=== PATIENT | female | born 1970 | race American Indian/Alaskan Native ===

== ENCOUNTER 2018-06-21 18:00 | Observation (INO) | payer OTHER, MEDICAID ==
[2018-06-21] MEDS ORDERED: COLACE PO PRN (18:22)
[2018-06-21] MEDS ORDERED: SODIUM CHLORIDE FLUSH SYRINGE 10 ML IV PRN (18:22)
[2018-06-21] MEDS ORDERED: TYLENOL PO PRN (18:22)
--- NOTE | 2018-06-21 19:24 | History and Physical Report ---
History of Present Illness Date of examination: 06/21/18 Date of admission: 06/21/18 Chief complaint: "Sent from the clinic for Uncontrolled BPs" History of present illness: 47yo G 2 P 0 1 0 0 at 31 weeks 4 days here from the clinic for evaluation for pre-eclampsia secondary to uncontrolled BPs. Her BPs were 157/105, 148/106 and > 150/100. She denies headache, visual disturbances or RUQ pain. She is a [facility] patient who initiated care at 6 weeks gestation. Her course is complicated by h/o PTD, AMA, chronic HTN, and GDM. She is on Aldomet 500mg PO TID. She was also started on Labetalol 200mg PO BID today. Per clinic note, her blood glucose is well-controlled. care co-managed with [facility]. Cerclage in place. Past History Past Medical History: hypertension, diabetes (GDM), thyroid disease (secondary hypothyroidism) - Obstetrical History Expected Date of Delivery: 08/19/18 Actual Gestation: 31 Week(s) 4 Day(s) : 2 Para: 0 Hx # Term Pregnancies: 0 Number of Pregnancies: 1 Spontaneous Abortions: 0 Induced : 0 Number of Living Children: 0 Medications and Allergies Allergies Allergy/AdvReac Type Severity Reaction Status Date / Time No Known Allergies Allergy Verified 05/26/18 21:57 Home Medications Medication Instructions Recorded Confirmed Last Taken Type Methyldopa [Aldomet] 500 mg PO TID 05/26/18 05/26/18 05/26/18 09:00 History Vit,Calc76/Iron/Folic 1 each PO DAILY 05/26/18 05/26/18 05/26/18 09:00 History [Pnv 29-1 Tablet] Active Meds: Active Medications Acetaminophen (Tylenol) 650 mg PO Q4H PRN PRN Reason: Pain MILD(1-3)/Fever >100.5/PALOMINO Docusate Sodium (Colace) 100 mg PO Q12H PRN PRN Reason: Constipation Labetalol HCl (Normodyne) 200 mg PO BID [facility] Methyldopa (Aldomet) 500 mg PO ONCE ONE Stop: 06/22/18 10:01 Multivitamins/Iron/Calcium ( Vitamin) 1 each PO QDAY [facility] Sodium Chloride (Sodium Chloride Flush Syringe 10 Ml) 10 ml IV PRN PRN PRN Reason: LINE FLUSH Review of Systems All systems: negative - Vital Signs Vital signs: Vital Signs Pulse BP 74 141/81 05/26/18 21:42 05/26/18 21:42 Temp Pulse Resp BP Pulse Ox 96 H 131/77 06/21/18 18:58 06/21/18 18:58 - Physical Exam Extremities: Positive: edema (2+ BLE) - Obstetrical FHR: auscultation normal, category 1 FHR comments: baseline 140, moderate variability, 15x15 accels, no decels Uterine Contraction Monitor Mode: Palpation Uterine Contraction Pattern: Absent Results All other labs normal. Assessment and Plan - Patient Problems (1) 31 weeks gestation of Current Visit: Yes Status: Acute (2) Chronic hypertension affecting Current Visit: Yes Status: Acute Plan to address problem: Admit to L&D for 23-hours observation STAT PIH labs ordered. 24-hr urine collection initiated BPP/Doppler/DOLORES ordered Consulted Dr Juan with [facility]; will see pt in the AM (3) Gestational diabetes mellitus (GDM) Current Visit: Yes Status: Acute Qualifiers: Gestational diabetes mellitus control: diet-controlled Trimester: third trimester Qualified Code(s): O24.410 - Gestational diabetes mellitus in , diet controlled Plan to address problem: Continue blood glucose checks 4x/d (fasting and 2-hr PP) ADA diet (4) Advanced maternal age (AMA), 40 years or greater Current Visit: Yes Status: Acute
[2018-06-21 20:43] LABS: Hematocrit 30.5 % (30.3-42.9); Hemoglobin 10.9 gm/dl (10.1-14.3); Mean Corpuscular HGB Conc 36 % (30-34); Mean Corpuscular Hemoglobin 33 pg (28-32); Mean Corpuscular Volume 92 fl (79-97); Platelet Count 178 K/mm3 (140-440); Red Blood Count 3.31 M/mm3 (3.65-5.03); Red Cell Distribution Width 13.9 % (13.2-15.2)
[2018-06-21 21:06] LABS: Uric Acid 5.1 mg/dL (3.5-7.6)
[2018-06-21] MEDS ORDERED: BRETHINE ONE (21:48)
[2018-06-21] MEDS ORDERED: PEPCID IV ONE (21:50)
[2018-06-21] MEDS ORDERED: BICITRA ONE (21:50)
[2018-06-21] MEDS ORDERED: ANCEF/STERILE WATER 2 GM/20 ML 0 GM/0 ML SYRINGE IV ONE (21:50)
[2018-06-21] MEDS ORDERED: REGLAN ONE (21:50)
[2018-06-21] MEDS: NORMODYNE PO SCH (22:46)
[2018-06-21] MEDS: ALDOMET PO SCH (22:47)
--- NOTE | 2018-06-21 23:29 | Ultrasound Report ---
FINAL REPORT PROCEDURE: US OB LIMITED TECHNIQUE: Real-time limited sonographic examination was performed for evaluation of size, position, heartbeat, fluid volume for each fetus with image documentation (1 or more fetuses). CPT 07246 HISTORY: louis COMPARISON: No prior studies are available for comparison. FINDINGS: biophysical profile: breathing movements: 2. movements: 2. posterior and tone: 2 Qualitative amniotic fluid volume: 2 Total score: 8/8. Cord Doppler SD ratio: 2.19. Resistive index: 0.54. IMPRESSION: Normal biophysical profile.
--- NOTE | 2018-06-21 23:33 | Ultrasound Report ---
FINAL REPORT PROCEDURE: US OB VELOCIMETRY UMBILCAL ART TECHNIQUE: Real-time limited sonographic examination was performed for evaluation of umbilical cord for each fetus with image documentation (1 or more fetuses). CPT 92428 HISTORY: well being COMPARISON: No prior studies are available for comparison. FINDINGS: heart rate 136 beats per minute. Cord Doppler SD ratio: 2.19. Resistive index: 0.54. IMPRESSION: Cord Doppler SD ratio is within normal limits.
[2018-06-22] MEDS ORDERED: AMBIEN PO PRN (05:37)
[2018-06-22] MEDS ORDERED: AMBIEN ONE (05:42)
[2018-06-22] MEDS: ALDOMET PO SCH ×3 (05:54→21:06)
[2018-06-22] MEDS ORDERED: CELESTONE SOLUSPAN IM SCH (07:00)
--- NOTE | 2018-06-22 07:54 | Ultrasound Report ---
ULTRASOUND BIOPHYSICAL PROFILE: History: Hypertension Technique: Transabdominal ultrasound with Doppler interrogation. 2 - breathing movements 2 - movements 2 - posture and tone 2 - Qualitative amniotic fluid volume 8 - TOTAL SCORE OF POSSIBLE 8 Heart Rate (bpm) 136
[2018-06-22] MEDS ORDERED: ALDOMET PO ONE (10:00)
--- NOTE | 2018-06-22 11:22 | Progress Note ---
Assessment and Plan - Patient Problems (1) 31 weeks gestation of Current Visit: Yes Status: Acute (2) Chronic hypertension affecting Current Visit: Yes Status: Acute Plan to address problem: Continue aldomet and labetolol. Toxemia labs were normal. Will start magnesium if BP becomes unstable or if she develops signs of superimposed pre-eclampsia. Continous monitoring. 24-hr urine in progress. Celestone for FLM dose #2 Due tonight. [facility] consult called. NICU consult. (3) Gestational diabetes mellitus (GDM) Current Visit: Yes Status: Acute Qualifiers: Gestational diabetes mellitus control: diet-controlled Trimester: third trimester Qualified Code(s): O24.410 - Gestational diabetes mellitus in , diet controlled Plan to address problem: Blood glucose has been fairly controlled. Continue FS monitoring and ADA diet. (4) Advanced maternal age (AMA), 40 years or greater Current Visit: Yes Status: Acute (5) Cervical incompetence Current Visit: Yes Status: Acute (6) Cazares cerclage present Current Visit: Yes Status: Acute (7) Hypothyroidism affecting Current Visit: Yes Status: Acute Plan to address problem: Last thyroid profile was normal. (8) Anemia Current Visit: Yes Status: Acute Qualifiers: Anemia type: iron deficiency Subjective - Subjective Date of service: 06/22/18 Principal diagnosis: SIUP at 31 weeks with elevated BP. Interval history: Patient is a 47 year old , LMP 11/02/17, EDC 08/19/18 at 31 weeks and 5 days gestation who was sent from the office last evening for elevated BP of 157/ 105. She has a history of chronic HTN, gestational diabetes, cervical incompetence with cerclage in place. She is co-managed with [facility]. She was started on aldomet a few weeks ago and labetolol was added yesterday. She denied any headache, visual changes or RUQ pain. She denies any contractions, fluid leakage or bleeding. She reported good movement. Toxemia labs were normal. tracing has been CAT 1, BPP was 8/8 last night, DOLORES was 11. Cellestone for FLM was given. This AM, she denies any complaint. Objective - Vital Signs Vital Signs: Vital Signs - 12hr 06/21/18 06/21/18 06/22/18 23:19 23:59 00:59 Temperature 98.5 F Pulse Rate 93 H 81 Respiratory 18 Rate Blood Pressure 142/85 121/69 Blood Pressure [Right] O2 Sat by Pulse Oximetry 06/22/18 06/22/18 06/22/18 02:00 02:59 03:59 Temperature Pulse Rate 86 78 80 Respiratory Rate Blood Pressure 134/81 129/74 157/87 Blood Pressure [Right] O2 Sat by Pulse Oximetry 06/22/18 06/22/18 06/22/18 04:00 04:02 04:34 Temperature Pulse Rate 77 79 Respiratory 18 Rate Blood Pressure 151/87 161/94 Blood Pressure 152/82 [Right] O2 Sat by Pulse Oximetry 06/22/18 06/22/18 06/22/18 04:40 05:04 05:37 Temperature Pulse Rate 80 75 74 Respiratory Rate Blood Pressure 127/66 142/81 121/76 Blood Pressure [Right] O2 Sat by Pulse Oximetry 06/22/18 06/22/18 06/22/18 05:54 05:56 06:04 Temperature 96.7 F L Pulse Rate 74 80 85 Respiratory 19 Rate Blood Pressure 128/81 128/81 128/79 Blood Pressure 128/81 [Right] O2 Sat by Pulse Oximetry 06/22/18 06/22/18 06/22/18 06:34 07:04 07:34 Temperature Pulse Rate 88 81 84 Respiratory Rate Blood Pressure 133/78 139/77 116/67 Blood Pressure [Right] O2 Sat by Pulse Oximetry 06/22/18 06/22/18 06/22/18 08:04 08:10 08:14 Temperature 98 F Pulse Rate 94 H 85 85 Respiratory 24 Rate Blood Pressure 140/81 130/76 Blood Pressure 130/76 [Right] O2 Sat by Pulse 98 97 Oximetry 06/22/18 06/22/18 06/22/18 08:19 08:24 08:29 Temperature Pulse Rate 88 87 89 Respiratory Rate Blood Pressure Blood Pressure [Right] O2 Sat by Pulse 97 97 97 Oximetry 06/22/18 06/22/18 06/22/18 08:34 08:39 08:44 Temperature Pulse Rate 83 88 90 Respiratory Rate Blood Pressure 139/76 Blood Pressure [Right] O2 Sat by Pulse 97 97 98 Oximetry 06/22/18 06/22/18 06/22/18 08:49 08:54 08:59 Temperature Pulse Rate 91 H 89 87 Respiratory Rate Blood Pressure Blood Pressure [Right] O2 Sat by Pulse 97 97 98 Oximetry 06/22/18 06/22/18 06/22/18 09:03 09:04 09:09 Temperature Pulse Rate 94 H 93 H 89 Respiratory Rate Blood Pressure 140/86 Blood Pressure [Right] O2 Sat by Pulse 91 93 98 Oximetry 06/22/18 09:34 Temperature Pulse Rate 94 H Respiratory Rate Blood Pressure 126/70 Blood Pressure [Right] O2 Sat by Pulse Oximetry - Exam Cardiovascular: Normal S1, Normal S2 Lungs: Clear to auscultation Vulva: both: normal FHR: category 1 Uterine Contraction Monitor Mode: External Cervical Dilatation: 0 Cervical Effacement Percentage: 0 station: -3 Uterine Contraction Pattern: Absent Deep Tendon Reflex Grade: Normal +2 - Labs Labs: Abnormal Labs 06/21/18 20:30 RBC 3.31 L MCH 33 H MCHC 36 H Laboratory Results - last 24 hr 06/21/18 06/21/18 20:30 20:30 WBC 8.7 RBC 3.31 L Hgb 10.9 Hct 30.5 MCV 92 MCH 33 H MCHC 36 H RDW 13.9 Plt Count 178 Uric Acid 5.1 AST 18 ALT 13 Lactate Dehydrogenase 136 - Results US- obstetric: report reviewed
[2018-06-22] MEDS: PRENATAL VITAMIN PO SCH (12:23)
[2018-06-22] MEDS: NORMODYNE PO SCH ×2 (12:24→21:06)
--- NOTE | 2018-06-22 14:21 | Consultation ---
History of Present Illness Consult date: 06/22/18 Requesting physician: JOSELYN HILL History of present illness: 47 y/o MARIBELL 08/19/18 now 31 4/7 weeks sent in from OBs office with elevated BP's BP's in office 157/105 and 148/106 Last BP 139/81 H/O CHTN was on Methyldopa 750 TID per patient (taking a 500 mg pill and 1/2 500 mg pill TID was to start QID) Liu PALOMINO's [place] or RUQ Pain Pos swelling in lower extremities Reports being on BP's meds prior to BP's now stable after Labetalol added 200 BID --------- Also reports GDM - controlled with diet - (failed 3 hour GTT) Also h/o inc cx with cerclage by Dr. Denny Labs AST/ALT 19/13 Plts at 178 H/h at 10.9/30.5 Spot UA not seen 24 Hour urine pending BPP 8/8 - normal and DOLORES at 11 CM EFM 130's categ I Getting steroids Abd soft gravid NT no RUQ Pain Ext 1 edema DTR 2/4 no clonus OB hist VIP X 1 2014 Prog loss 20 weeks inc cx - ?? omphalocele Med CHTN GDM ?? Thyroid dys No STD No CDD NKA Past History Past Medical History: hypertension, diabetes (GDM), thyroid disease (secondary hypothyroidism) - Obstetrical History : 2 Medications and Allergies Allergies Allergy/AdvReac Type Severity Reaction Status Date / Time No Known Allergies Allergy Verified 05/26/18 21:57 Home Medications Medication Instructions Recorded Confirmed Last Taken Type Methyldopa [Aldomet] 500 mg PO TID 05/26/18 05/26/18 05/26/18 09:00 History Vit,Calc76/Iron/Folic 1 each PO DAILY 05/26/18 05/26/18 05/26/18 09:00 History [Pnv 29-1 Tablet] Active Meds: Active Medications Acetaminophen (Tylenol) 650 mg PO Q4H PRN PRN Reason: Pain MILD(1-3)/Fever >100.5/PALOMINO Betamethasone Acet/Betameth SodPhos (Celestone Soluspan) 12 mg IM Q24H [facility] Stop: 06/23/18 07:01 Last Admin: 06/22/18 12:20 Dose: 12 mg Docusate Sodium (Colace) 100 mg PO Q12H PRN PRN Reason: Constipation Labetalol HCl (Normodyne) 200 mg PO BID [facility] Last Admin: 06/22/18 12:24 Dose: 200 mg Methyldopa (Aldomet) 500 mg PO Q8HR [facility] Multivitamins/Iron/Calcium ( Vitamin) 1 each PO QDAY [facility] Last Admin: 06/22/18 12:23 Dose: 1 each Sodium Chloride (Sodium Chloride Flush Syringe 10 Ml) 10 ml IV PRN PRN PRN Reason: LINE FLUSH Zolpidem Tartrate (Ambien) 5 mg PO QHS PRN PRN Reason: Sleep - Vital Signs Vital signs: Vital Signs Pulse BP 74 141/81 05/26/18 21:42 05/26/18 21:42 Temp Pulse Resp BP Pulse Ox 98.2 F 85 20 117/62 93 06/22/18 12:29 06/22/18 12:29 06/22/18 12:29 06/22/18 12:29 06/22/18 12:29 Results Result Diagrams: 06/21/18 20:30 Abnormal lab results 06/21/18 Range/Units 20:30 RBC 3.31 L (3.65-5.03) M/mm3 MCH 33 H (28-32) pg MCHC 36 H (30-34) % All other labs normal. Assessment and Plan 1. Garcia IUP at 31 5/7 weeks 2. CHTN with Elevated BP's R/O Superimposed Preeclampsia 3. GDM 4. AMA 5. H/O Inc Cx with Cerclage 6. H/O Thyroid dys per notes Recommendations: 1. Accuchecks fastings and 2 Hour PP's 2. Diabetic teaching if not done 3. get HgA1c, TSH and Free T4 and UA if not done and drug screen 4. US for EFW if not done 5. Awaiting 24 Hour urine prot 6. NICU consult 7. Agree with Labetalol and Methyldopa 8. IV hydralazine for BP's sys > 160 or petersen > 110 9. Delivery for S/S of severe preeclampsia or compromise 10. 2200 ADA diet
--- NOTE | 2018-06-22 17:43 | Consultation ---
History of Present Illness Consult date: 06/22/18 Reason for consult: prematurity (Severe PIH at 31 weeks gestation) History of present illness: Met with mother and discussed the following: Expected NICU course Possible need for intubation, surfactant and mechanical ventilation Possible need for umbilical lines Possible need HUS for diagnosing and monitoring for IVH depending on gestation Possible need for parenteral nutrition and importance of breast milk Mother demonstrated understanding of information provided and asked appropriate questions and I encouraged her to call the NICU with questions Documentation - information: Height 5 ft 1 in Medications and Allergies Allergies Allergy/AdvReac Type Severity Reaction Status Date / Time No Known Allergies Allergy Verified 05/26/18 21:57 Home Medications Medication Instructions Recorded Confirmed Last Taken Type Methyldopa [Aldomet] 500 mg PO TID 05/26/18 05/26/18 05/26/18 09:00 History Vit,Calc76/Iron/Folic 1 each PO DAILY 05/26/18 05/26/18 05/26/18 09:00 History [Pnv 29-1 Tablet] Active Meds: Active Medications Acetaminophen (Tylenol) 650 mg PO Q4H PRN PRN Reason: Pain MILD(1-3)/Fever >100.5/PALOMINO Betamethasone Acet/Betameth SodPhos (Celestone Soluspan) 12 mg IM Q24H [facility] Stop: 06/23/18 07:01 Last Admin: 06/22/18 12:20 Dose: 12 mg Docusate Sodium (Colace) 100 mg PO Q12H PRN PRN Reason: Constipation Labetalol HCl (Normodyne) 200 mg PO BID [facility] Last Admin: 06/22/18 12:24 Dose: 200 mg Methyldopa (Aldomet) 500 mg PO Q8HR [facility] Last Admin: 06/22/18 14:17 Dose: 500 mg Multivitamins/Iron/Calcium ( Vitamin) 1 each PO QDAY [facility] Last Admin: 06/22/18 12:23 Dose: 1 each Sodium Chloride (Sodium Chloride Flush Syringe 10 Ml) 10 ml IV PRN PRN PRN Reason: LINE FLUSH Zolpidem Tartrate (Ambien) 5 mg PO QHS PRN PRN Reason: Sleep Exam Vital Signs Pulse BP 74 141/81 05/26/18 21:42 05/26/18 21:42 Temp Pulse Resp BP Pulse Ox 98.2 F 76 20 139/81 93 06/22/18 12:29 06/22/18 14:17 06/22/18 12:29 06/22/18 14:17 06/22/18 12:29 Results - Laboratory Findings 06/21/18 20:30 Abnormal lab results 06/21/18 Range/Units 20:30 RBC 3.31 L (3.65-5.03) M/mm3 MCH 33 H (28-32) pg MCHC 36 H (30-34) % Assessment and Plan Agree with steroids NICU will attend delivery Please call NICU with questions
[2018-06-22] MEDS ORDERED: HEMORRHOIDAL 0.25/3/85.5% PR PRN (21:27)
[2018-06-22 22:29] LABS: Total Volume,Urine 2250
[2018-06-22 22:40] LABS: Amphetamine Screen,Urine PRESUMPTIVE NEGATIVE; Benzodiazepines Screen,Urine PRESUMPTIVE NEGATIVE; Cannabinoid Screen,Urine PRESUMPTIVE NEGATIVE; Cocaine Screen,Urine PRESUMPTIVE NEGATIVE; Methadone Screen,Urine PRESUMPTIVE NEGATIVE; Opiate Screen,Urine PRESUMPTIVE NEGATIVE
[2018-06-23] MEDS: ALDOMET PO SCH ×2 (05:38→14:23)
--- NOTE | 2018-06-23 08:57 | Progress Note ---
Assessment and Plan - Patient Problems (1) 31 weeks gestation of Current Visit: Yes Status: Acute (2) Chronic hypertension affecting Current Visit: Yes Status: Acute Plan to address problem: BP has becomed stable. Continue aldomet and labetolol. Toxemia labs were normal on admission. Will repeat today. 24-hr urine protein 495. Celestone for FLM completed. [facility] consult done, agreed with current management. NICU consult done. Will discharge home today if toxemia labs and BPP normal. Pt to F/U with [facility] in 2 days. Pt says that she has labetolol and aldomet Rx filled and has enough refills. She will call [facility] for F/U appt. (3) Gestational diabetes mellitus (GDM) Current Visit: Yes Status: Acute Qualifiers: Gestational diabetes mellitus control: diet-controlled Trimester: third trimester Qualified Code(s): O24.410 - Gestational diabetes mellitus in , diet controlled Plan to address problem: Blood glucose has been fairly controlled. Continue FS monitoring and ADA diet. (4) Advanced maternal age (AMA), 40 years or greater Current Visit: Yes Status: Acute (5) Cervical incompetence Current Visit: Yes Status: Acute (6) Cazares cerclage present Current Visit: Yes Status: Acute (7) Hypothyroidism affecting Current Visit: Yes Status: Acute Plan to address problem: Last thyroid profile 2 days ago was normal. (8) Anemia Current Visit: Yes Status: Acute Qualifiers: Anemia type: iron deficiency Subjective - Subjective Date of service: 06/23/18 Principal diagnosis: SIUP at 31 weeks with elevated BP. Interval history: Patient is a 47 year old , LMP 11/02/17, EDC 08/19/18 at 31 weeks and 6 days gestation who was sent from the office 2 days ago for elevated BP of 157/ 105. She has a history of chronic HTN, gestational diabetes, cervical incompetence with cerclage in place. She is co-managed with [facility]. She was started on aldomet a few weeks ago and labetolol was added on admission. She denied any headache, visual changes or RUQ pain. She denies any contractions, fluid leakage or bleeding. She reported good movement. Toxemia labs were normal. tracing has been CAT 1, BPP was 8/8, DOLORES was 11. Celestone for FLM was completed. This AM, she denies any complaint. Objective - Vital Signs Vital Signs: Vital Signs - 12hr 06/22/18 06/23/18 23:56 05:39 Temperature 95.8 F L 96.5 F L Pulse Rate 79 78 Respiratory 16 16 Rate Blood Pressure 146/71 115/59 [Right] - Exam Cardiovascular: Normal S1, Normal S2 Lungs: Clear to auscultation Vulva: both: normal FHR: category 1 Uterine Contraction Monitor Mode: External Uterine Contraction Pattern: Absent Deep Tendon Reflex Grade: Normal +2 - Labs Labs: Abnormal Labs 06/21/18 06/22/18 20:30 19:40 RBC 3.31 L MCH 33 H MCHC 36 H Ur Total Protein 24 Hr 495.00 H Urine Total Protein 22 H Laboratory Results - last 24 hr 06/22/18 06/22/18 06/22/18 19:40 22:43 22:43 Hemoglobin A1c 5.7 TSH Free T4 0.91 Urine Total Volume 2250 Ur Total Protein 24 Hr 495.00 H Urine Total Protein 22 H Urine Opiates Screen Presumptive negative Urine Methadone Screen Presumptive negative Ur Barbiturates Screen Presumptive negative Ur Phencyclidine Scrn Presumptive negative Ur Amphetamines Screen Presumptive negative U Benzodiazepines Scrn Presumptive negative Urine Cocaine Screen Presumptive negative U Marijuana (THC) Screen Presumptive negative Drugs of Abuse Note Disclamer 06/22/18 22:43 Hemoglobin A1c TSH 1.460 Free T4 Urine Total Volume Ur Total Protein 24 Hr Urine Total Protein Urine Opiates Screen Urine Methadone Screen Ur Barbiturates Screen Ur Phencyclidine Scrn Ur Amphetamines Screen U Benzodiazepines Scrn Urine Cocaine Screen U Marijuana (THC) Screen Drugs of Abuse Note - Results US- obstetric: report reviewed
[2018-06-23 09:45] LABS: Hematocrit 32.7 % (30.3-42.9); Hemoglobin 11.2 gm/dl (10.1-14.3); Mean Corpuscular HGB Conc 34 % (30-34); Mean Corpuscular Hemoglobin 32 pg (28-32); Mean Corpuscular Volume 93 fl (79-97); Platelet Count 187 K/mm3 (140-440); Red Blood Count 3.52 M/mm3 (3.65-5.03); Red Cell Distribution Width 13.6 % (13.2-15.2)
[2018-06-23 10:04] LABS: Alanine Aminotransferase 14 units/L (7-56); Uric Acid 4.9 mg/dL (3.5-7.6)
[2018-06-23] MEDS: PRENATAL VITAMIN PO SCH (10:26)
[2018-06-23] MEDS: NORMODYNE PO SCH (10:27)
[2018-06-23 11:58] VITALS: BP 105/57
[2018-06-23] MEDS ORDERED: CELESTONE SOLUSPAN IM ONE (12:30)
--- NOTE | 2018-06-23 12:48 | Event Note ---
Date: 06/23/18 Sonogram was done. EFW 1792, DOLORES 9.2, cord doppler normal. BPP 6/8 (-2 for breathing). Patient was made aware that she will need a repeat BPP after 6 hrs. If normal, she will be discharged as scheduled. If still the same, she will need to stay so that baby can be contineously monitored and BPP can be repeated tomorrow. She expressed understanding.
--- NOTE | 2018-06-23 12:57 | Ultrasound Report ---
ULTRASOUND BIOPHYSICAL PROFILE: History: Hypertension Technique: Transabdominal ultrasound with Doppler interrogation. 0 - breathing movements 2 - movements 2 - posture and tone 2 - Qualitative amniotic fluid volume 6 - TOTAL SCORE OF POSSIBLE 8 Heart Rate (bpm) 143
--- NOTE | 2018-06-23 12:58 | Ultrasound Report ---
ULTRASOUND OB VELOCIMETRY UMBILICAL ARTERY HISTORY: Hypertension. TECHNIQUE: Transabdominal ultrasound. Spectral Doppler interrogation was performed on 3 segments of the umbilical cord. FINDINGS: heart rate measures 146 beats per minute. The spectral waveforms are normal and persistent. No evidence for loss or reversal of end-diastolic flow. The resistive index average measures 0.58. The systolic/diastolic ratio average measures 2.6. IMPRESSION: Umbilical cord Doppler within normal limits.
--- NOTE | 2018-06-23 13:37 | Ultrasound Report ---
OB ULTRASOUND History: hypertension. Technique: Transabdominal ultrasound with Doppler interrogation. Gestation: Single Position: Cephalic Amniotic Fluid: Normal DOLORES = 9.2 cm Placenta: Posterior, fundal Placental Grade: 1 Heart Rate: 146 BPM BPD: 8.0 cm = 32 w 2 d HC: 29.5 cm = 32 w 4 d AC: 27.6 cm = 31 w 5 d FL: 5.9 cm = 30 w 6 d HC/AC Ratio: 1.1 Cephalic Index: 81.5 Estimated Weight: 1792 grams Clinical age = 31 w 6 d EDC: 08/19/18 US Gest. Age = 31 w 6 d EDC: 08/19/18 IMPRESSION: Viable, single intrauterine as described.
--- NOTE | 2018-06-23 14:18 | Consultation ---
History of Present Illness Consult date: 06/23/18 Requesting physician: JOSELYN HILL History of present illness: 47 y/o MARIBELL 08/19/18 now 31 5/7 weeks sent in from OBs office with elevated BP's BP's in office 157/105 and 148/106 Last BP today 06/23/18 124/69, 113/59, 133/71 H/O CHTN was on Methyldopa 750 TID per patient (taking a 500 mg pill and 1/2 500 mg pill TID was to start QID) and Labetalol 200 BID Liu PALOMINO's Scot[place] or RUQ Pain 24 Hour urine at 495 AST/ALT 16/14/ Plts at 187 TSH at 1.4 Free T4 .91 BPP /8 minust 2 for breathing DOLORES at 9.2 EFW at 1792 grams- 34% EFM categ I per nurse Abd nt no ruq pain DTR's 09/24 no clonus Past History Past Medical History: hypertension, diabetes (GDM), thyroid disease (secondary hypothyroidism) - Obstetrical History : 2 Medications and Allergies Allergies Allergy/AdvReac Type Severity Reaction Status Date / Time No Known Allergies Allergy Verified 05/26/18 21:57 Home Medications Medication Instructions Recorded Confirmed Last Taken Type Methyldopa [Aldomet] 500 mg PO TID 05/26/18 06/23/18 05/26/18 09:00 History Vit,Calc76/Iron/Folic 1 each PO DAILY 05/26/18 06/23/18 05/26/18 09:00 History [Pnv 29-1 Tablet] Active Meds: Active Medications Acetaminophen (Tylenol) 650 mg PO Q4H PRN PRN Reason: Pain MILD(1-3)/Fever >100.5/PALOMINO Docusate Sodium (Colace) 100 mg PO Q12H PRN PRN Reason: Constipation Labetalol HCl (Normodyne) 200 mg PO BID [facility] Last Admin: 06/23/18 10:27 Dose: 200 mg Methyldopa (Aldomet) 500 mg PO Q8HR [facility] Last Admin: 06/23/18 05:38 Dose: 500 mg Multivitamins/Iron/Calcium ( Vitamin) 1 each PO QDAY [facility] Last Admin: 06/23/18 10:26 Dose: 1 each Phenyleph/Shark Oil/Cherokee Butter (Hemorrhoidal 0.25/3/85.5%) 1 each KS Q6H PRN PRN Reason: Hemorrhoids Last Admin: 06/22/18 23:03 Dose: 1 each Sodium Chloride (Sodium Chloride Flush Syringe 10 Ml) 10 ml IV PRN PRN PRN Reason: LINE FLUSH Zolpidem Tartrate (Ambien) 5 mg PO QHS PRN PRN Reason: Sleep Last Admin: 06/22/18 23:42 Dose: 5 mg - Vital Signs Vital signs: Vital Signs Pulse BP 74 141/81 05/26/18 21:42 05/26/18 21:42 Temp Pulse Resp BP Pulse Ox 98.9 F 87 16 105/57 97 06/23/18 12:55 06/23/18 11:54 06/23/18 05:39 06/23/18 11:54 06/23/18 00:50 Results Result Diagrams: 06/23/18 09:24 06/23/18 09:24 Abnormal lab results 06/22/18 06/23/18 06/23/18 Range/Units 19:40 09:24 09:24 WBC 12.7 H (4.5-11.0) K/mm3 RBC 3.52 L (3.65-5.03) M/mm3 Creatinine 0.5 L (0.7-1.2) mg/dL POC Glucose (70-105) Ur Total Protein 24 Hr 495.00 H (2-200) Urine Total Protein 22 H (5-11.8) mg/dL 06/23/18 Range/Units 12:33 WBC (4.5-11.0) K/mm3 RBC (3.65-5.03) M/mm3 Creatinine (0.7-1.2) mg/dL POC Glucose 115 H (70-105) Ur Total Protein 24 Hr (2-200) Urine Total Protein (5-11.8) mg/dL All other labs normal. Assessment and Plan 1. Garcia IUP at 31 5/7 weeks 2. CHTN with Superimposed Preeclampsia - Mild 3. AMA 4. H/O Inc Cx with cerclage 5. ?? GDM - HgA1c at 5.7% - reports normal fbs and 2 Hour PP's 6. H/O Hypothyroid - TFT's WNL Recommendations: 1. May discharge home with strict instructions if S/S of PIH or DFM's call or return to hospital 2. Patient states she has BP Cuff at home and will monitor BP's BID 3. Weekly A-P testing with [facility] 4. Weekly FU with OB 5. PIH Labs weekly 6. Delivery recommended at 37 weeks if remains mild preeclampsia 7. Patient understands restricted activity and to call with S/S of PIH or if her BP's increasing at home or elevated BS's
--- NOTE | 2018-06-23 20:53 | Ultrasound Report ---
FINAL REPORT PROCEDURE: US OB BPP WO NON-STRESS TECHNIQUE: Real-time limited sonographic examination was performed for evaluation of size, position, heartbeat, fluid volume for each fetus with image documentation (1 or more fetuses). CPT 82339 HISTORY: abnormal BPP COMPARISON: No prior studies are available for comparison. FINDINGS: biophysical profile: breathing movements: 2. movements: 2. posterior and tone: 2. Amniotic fluid volume: 2. Total score: 8/8. heart rate 133 beats per minute. IMPRESSION: Normal biophysical profile.
== END 2018-06-23 20:45 | disposition home or self-care (01) ==
LOC: TRG 18:00 → LD 18:01 → TRG 18:22 → LD 18:23 → TRG 06-23 12:37 → LD 06-23 12:37
PROVIDERS: ADMIT Obstetrics & Gynecology; ATTEND Obstetrics & Gynecology
DX: O10.913 Unspecified pre-existing hypertension complicating pregnancy, third trimester (principal); O24.410 Gestational diabetes mellitus in pregnancy, diet controlled; O09.523 Supervision of elderly multigravida, third trimester; O99.284 Endocrine, nutritional and metabolic diseases complicating childbirth; E07.9 Disorder of thyroid, unspecified; Z3A.31 31 weeks gestation of pregnancy
CPT/HCPCS: 36415; 76815; 76816; 76819; 76820; 80307; 82565; 82962; 83036; 83615; 84156; 84439; 84443; 84450; 84460; 84550; 85027; 96372; G0378; J0702; J0690; J2765; J3105

== ENCOUNTER 2018-07-13 14:44 | Inpatient (IN) | payer OTHER, MEDICAID ==
[2018-07-13] MEDS ORDERED: MAGNESIUM SULFATE 4GM/100ML 4 GM/100 ML BAG IV ONE (16:20)
[2018-07-13] MEDS ORDERED: APRESOLINE IV PRN (16:20)
[2018-07-13] MEDS ORDERED: XYLOCAINE 2% INFILTRATI ONE (16:24)
[2018-07-13] MEDS ORDERED: POLYCILLIN/NS 2 GM/100 ML 2 GM/100 ML BAG IV ONE (16:24)
[2018-07-13] MEDS ORDERED: BRETHINE IVP PRN (16:24)
[2018-07-13] MEDS ORDERED: MINERAL OIL PO PRN (16:24)
[2018-07-13] MEDS ORDERED: BRETHINE SUB-Q PRN (16:24)
[2018-07-13] MEDS ORDERED: NORMODYNE IV PRN (16:27)
--- NOTE | 2018-07-13 16:33 | History and Physical Report ---
History of Present Illness Date of examination: 07/13/18 Chief complaint: Elevated BP's History of present illness: 47-year-old at 34+5 weeks presents from the office for workup, she is a [employer] patient. Essential history is patient with chronic hypertension and diagnosed with preeclampsia at 31 weeks. She has been managed expectantly, she also has gestational diabetes diet controlled. [facility] and sent over to triage for BPP. In triage, her blood pressure noted to be elevated with range 160-200s/80-90s. She denies headache, no sob or chest pain, no scotomata or epigastric pain. +FM no LO, no UC's or VB Her prior OB history significant for ~ 20 week loss. 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 denies: smoking, IV drug use - Obstetrical History Expected Date of Delivery: 08/19/18 Actual Gestation: 34 Week(s) 5 Day(s) : 3 Para: 1 Hx # Term Pregnancies: 0 Number of Pregnancies: 1 (at ~ 20 weeks) Number of Living Children: 0 Medications and Allergies Allergies Allergy/AdvReac Type Severity Reaction Status Date / Time No Known Allergies Allergy Verified 05/26/18 21:57 Home Medications Medication Instructions Recorded Confirmed Last Taken Type Methyldopa [Aldomet] 500 mg PO TID 05/26/18 06/23/18 05/26/18 09:00 History Vit,Calc76/Iron/Folic 1 each PO DAILY 05/26/18 06/23/18 05/26/18 09:00 History [Pnv 29-1 Tablet] Active Meds: Active Medications Ephedrine Sulfate (Ephedrine Sulfate) 10 mg IV Q2M PRN PRN Reason: Hypotension Hydralazine HCl (Apresoline) 5 mg IV Q30MIN PRN PRN Reason: Hypertension Lactated Ringer's (Lactated Ringers) 1,000 mls @ 125 mls/hr IV DIRECT [facility] Magnesium Sulfate (Magnesium Sulfate 40gm/1000ml) 40 gm in 1,000 mls @ 50 mls/ hr IV DIRECT [facility] Magnesium Sulfate (Magnesium Sulfate 4gm/100ml) 4 gm in 100 mls @ 300 mls/hr IV ONCE ONE Stop: 07/13/18 16:39 Ampicillin Sodium (Ampicillin/Ns 1 Gm/50 Ml) 1 gm in 50 mls @ 100 mls/hr IV Q4HR [facility]; Protocol Ampicillin Sodium (Polycillin/Ns 2 Gm/100 Ml) 2 gm in 100 mls @ 100 mls/hr IV ONCE ONE; Protocol Stop: 07/13/18 17:23 Lactated Ringer's (Lactated Ringers) 1,000 mls @ 125 mls/hr IV DIRECT [facility] Oxytocin/Sodium Chloride (Pitocin/Ns 20 Unit/1000ml Drip) 20 units in 1,000 mls @ 125 mls/hr IV DIRECT [facility] Oxytocin/Sodium Chloride (Pitocin/Ns 30 Unit/500ml) 30 units in 500 mls @ 1 mls /hr IV TITR [facility]; Protocol Lidocaine (Xylocaine 2%) 20 ml INFILTRATI ONCE ONE Stop: 07/13/18 16:25 Mineral Oil (Mineral Oil) 30 ml PO QHS PRN PRN Reason: Constipation Terbutaline Sulfate (Brethine) 0.25 mg SUB-Q ONCE PRN PRN Reason: Hyperstimulation/Hypertonicity Terbutaline Sulfate (Brethine) 0.25 mg IVP ONCE PRN PRN Reason: Hyperstimulation/Hypertonicity Review of Systems Constitutional: no fever, no chills, no fatigue, no weakness Eyes: no blurred vision, no diplopia, no photophobia, no blind spots Cardiovascular: high blood pressure, no chest pain, no syncope, no lightheadedness, no shortness of breath, no dyspnea on exertion, no paroxysmal nocturnal dyspnea Respiratory: no cough, no cough with sputum, no shortness of breath, no dyspnea on exertion Gastrointestinal: no abdominal pain, no nausea, no vomiting Genitourinary: no vaginal bleeding, no vaginal discharge, no leakage of fluid, no pelvic pain, no contractions - Vital Signs Vital signs: Vital Signs Temp Pulse Resp BP Pulse Ox 97.9 F 69 18 186/96 97 07/13/18 15:18 07/13/18 15:18 07/13/18 15:18 07/13/18 15:18 07/13/18 15:18 Temp Pulse Resp BP Pulse Ox 97.9 F 71 18 165/82 91 07/13/18 15:18 07/13/18 16:12 07/13/18 15:18 07/13/18 16:12 07/13/18 15:30 - Physical Exam Cardiovascular: Regular rate, Normal S1, Normal S2 Lungs: Positive: Clear to auscultation, Normal air movement Abdomen: Positive: normal appearance, soft. Negative: tenderness, guarding Genitourinary (Female): Positive: normal external genitalia Uterus: Positive: enlarged (EFW ~ 3400) Adnexa: both: normal Extremities: Positive: normal - Obstetrical FHR: category 1 Results All other labs normal. Assessment and Plan A: 47-year-old at 34+5 weeks with superimposed preeclampsia on chronic hypertension -Cat 1 tracing P: -Admit -Start magnesium per protocol and antihypertensives -Remove cerclage at this point and proceeded with delivery -Notify NICU -Discussed above with Dr. Juan of [facility] - Patient Problems (1) 34 weeks gestation of Current Visit: Yes Status: Acute (2) Pre-eclampsia superimposed on chronic hypertension Current Visit: Yes Status: Acute
--- NOTE | 2018-07-13 16:37 | Ultrasound Report ---
FINAL REPORT EXAM: US OB BPP WO NON-STRESS HISTORY: CHECK UP TECHNIQUE: Transabdominal sonography of the pelvis. PRIORS: 23 June 2018. FINDINGS: Biophysical profile: breathing movements: 2/2 movements: 2/2 posture and tone: 2/2 Qualitative amniotic fluid volume: 2/2 Total: 8/8 heart rate 134 beats per minute. IMPRESSION: 1. Biophysical profile as noted above.
[2018-07-13] MEDS ORDERED: PITOCin/NS 30 UNIT/500ML 30 UNITS/500 ML BAG IV SCH (17:00)
[2018-07-13] MEDS ORDERED: PITOCin/NS 20 UNIT/1000ML DRIP 20 UNITS/1,000 ML BAG IV SCH (17:00)
[2018-07-13] MEDS ORDERED: MAGNESIUM SULFATE 40GM/1000ML 40 GM/1,000 ML BAG IV SCH (17:00)
[2018-07-13] MEDS ORDERED: LACTATED RINGERS 1,000 ML IV SCH ×2 (17:00)
[2018-07-13 17:51] LABS: Hematocrit 35.2 % (30.3-42.9); Hemoglobin 12.2 gm/dl (10.1-14.3); Mean Corpuscular HGB Conc 35 % (30-34); Mean Corpuscular Hemoglobin 32 pg (28-32); Mean Corpuscular Volume 93 fl (79-97); Platelet Count 156 K/mm3 (140-440); Red Blood Count 3.78 M/mm3 (3.65-5.03); Red Cell Distribution Width 13.6 % (13.2-15.2)
[2018-07-13 18:08] LABS: Alanine Aminotransferase 27 units/L (7-56); Albumin 3.5 g/dL (3.9-5); BUN/Creatinine Ratio 27; Blood Urea Nitrogen 19 mg/dL (7-17); Calcium 9.1 mg/dL (8.4-10.2); Hemolysis Index 7
[2018-07-13 18:09] LABS: Bilirubin,Direct < 0.2 mg/dL (0-0.2)
[2018-07-13] MEDS ORDERED: TYLENOL PO ONE (19:31)
--- NOTE | 2018-07-13 20:11 | Event Note ---
Date: 07/13/18 Cerclage removed in the room. Cervix is closed. Plan is low dose pit overnight.
[2018-07-13] MEDS ORDERED: AMPICILLIN/NS 1 GM/50 ML 1 GM/50 ML BAG IV SCH (20:25)
[2018-07-13] MEDS ORDERED: BICITRA PO ONE (21:59)
[2018-07-13] MEDS ORDERED: EMLA TP PRN (21:59)
[2018-07-13] MEDS ORDERED: PEPCID IV ONE ×2 (21:59→22:03)
[2018-07-13] MEDS ORDERED: REGLAN IV ONE (21:59)
[2018-07-13] MEDS ORDERED: ANCEF/STERILE WATER 2 GM/20 ML 2 GM/20 ML SYRINGE IV NR (22:00)
[2018-07-13] MEDS ORDERED: REGLAN ONE (22:03)
[2018-07-13] MEDS ORDERED: BICITRA ONE (22:03)
--- NOTE | 2018-07-13 22:07 | Event Note ---
Date: 07/13/18 Called by RN notified patient wishes to proceed with primary . Patient is status post SROM. On exam, unable to feel the cervix as appears to be -4 station. Discussed in detail with and her partner, reviewed risks of C- section. She wishes to proceed with primary . She has been consented, will proceed to OR once available.
[2018-07-13] MEDS ORDERED: XYLOCAINE MPF 2% ONE ×4 (22:49→23:08)
[2018-07-13] MEDS ORDERED: SUBLIMAZE ONE ×2 (22:59→23:11)
[2018-07-13] MEDS ORDERED: TORADOL ONE (23:17)
[2018-07-13] MEDS ORDERED: DILAUDID ONE (23:19)
[2018-07-13] MEDS ORDERED: NEO SYNEPHRINE/NS Syringe(OR USE) IV ONE (23:21)
--- NOTE | 2018-07-14 00:07 | Operative Report ---
Operative Report Operative Report: DATE: 07/14/18 PREOPERATIVE DIAGNOSIS: 47-year-old at 34+5 weeks, preeclampsia with severe features, status post cerclage remote from delivery, Maternal request for POSTOP DIAGNOSIS: As above plus IUGR NAME OF PROCEDURE: Primary low transverse section SURGEON: NEVILLE CASAS MD ARCHEOLOGY FACULTY MEMBER: Tangela ANESTHESIA: Epidural EBL: 200 mL PATHOLOGY SPECIMEN: Placenta URINE OUTPUT: 50 mL FINDINGS: Male Infant in cephalic presentation, time of 23:09, weight 3 lbs. 15 oz. or 1805 grams, Apgars 8 and 9, normal uterus tubes and ovaries bilaterally, multi fibroid uterus noted with largest visible is a 3x5 cm fibroid noted on anterior surface of uterus DESCRIPTION OF PROCEDURE: After informed consent, patient was taken to the operating room where she was prepped and draped in a sterile fashion. Pfannestial incision was performed 2 cm above the pubic symphysis. This was then carried down to the underlying rectus fascia which was scored in the midline. The fascial incision was extended laterally with the use of Garber scissors, anterior leaf was then grasped with Ale's elevated dissected sharply and bluntly off the underlying rectus. In a similar fashion the inferior leaf was grasped elevated dissected sharply and bluntly off the underlying rectus. The rectus was in the midline and the peritoneal cavity was entered without difficulty. After good visualization of the bladder the peritoneal layer was extended up and down; bladder blade was placed in the patient's pelvic cavity, bladder flap was created without difficulty. A hysterotomy incision was then performed with clear amniotic fluid noted. in cephalic presentation was delivered without difficulty in the usual manner; cord was clamped cut and was handed over to waiting NICU staff. The placenta was then delivered intact, the uterus was then exteriorized cleared of all clots and debris. Her hysterotomy incision was then closed in a running locked fashion with 0 Vicryl on a CTX; using the same suture were able to imbricate the initial layer. The uterus was then returned to the patient's pelvic cavity; the peritoneal edges were grasped with hemostats and Liane's; irrigation was used to clear the gutters of all clots and debris. Tisseel hemostatic agent was applied copiously over the hysterotomy incision. The bladder flap was then closed in a running fashion with 3-0 Vicryl. The peritoneal layer was closed in a running fashion with 3-0 Vicryl; the rectus was reapproximated with a single [id number] stitch. The fascia was then closed in a running fashion with 0 Vicryl; the subcutaneous layer was reapproximated with a single [id number] stitch. The skin was then closed in a subcuticular manner with 4-0 Monocryl. She tolerated the procedure well lap and instrument counts were correct 2, she did receive 2 grams of Ancef prior to the procedure. She is transferred to PACU in stable condition.
[2018-07-14] MEDS ORDERED: NARCAN 0.4 MG/1 ML IV PRN (00:10)
[2018-07-14] MEDS ORDERED: SENOKOT PO PRN (00:10)
[2018-07-14] MEDS ORDERED: TUCKS PAD TP PRN (00:10)
[2018-07-14] MEDS ORDERED: PHENERGAN PR PRN (00:10)
[2018-07-14] MEDS ORDERED: ZOFRAN IV PRN (00:10)
[2018-07-14] MEDS ORDERED: MYLICON PO PRN (00:10)
[2018-07-14] MEDS ORDERED: ANUCORT-HC PR PRN (00:10)
[2018-07-14] MEDS ORDERED: LANSINOH TP PRN (00:10)
[2018-07-14] MEDS ORDERED: PITOCin/NS 20 UNIT/1000ML DRIP 20 UNITS/1,000 ML BAG IV SCH (01:00)
[2018-07-14] MEDS ORDERED: SODIUM CHLORIDE FLUSH SYRINGE 10 ML IV NR (01:00)
[2018-07-14] MEDS: TORADOL IV PRN ×2 (06:14→14:55)
[2018-07-14] MEDS ORDERED: D50W (25GM) Syringe IV PRN (06:44)
[2018-07-14] MEDS: NORMODYNE PO SCH ×2 (07:03→22:21)
[2018-07-14] MEDS: HumuLIN R SUB-Q SCH ×3 (08:20→17:00)
--- NOTE | 2018-07-14 09:59 | Progress Note ---
Assessment and Plan A: POD#1 s/p Primary section CHTN w/ Super imposed Pre-eclampsia Magnesium Sulfate 2grams hour (last MgS04 level 5.4) Infant in NICU (34w5d) Pain well controlled Tolerating clear liquids Stable P: Continue routine PP/Po orders Continue MgS04 x 24hrs PP Advance diet as tolerated Removed Knight today Abdominal binder Subjective - Subjective Date of service: 07/14/18 Principal diagnosis: POD#1 s/p Primary c/s, Preeclampsia Patient reports: appetite normal, voiding normally, pain well controlled, flatus , ambulating normally, no bowel movement : in NICU ( delivery) Objective - Vital Signs Latest vital signs: Vital Signs Temp Pulse Resp BP BP Pulse Ox 07/14/18 07:03 76 157/87 07/14/18 06:45 76 157/87 07/14/18 04:00 98.6 F 82 18 161/99 07/14/18 02:00 98.7 F 77 16 157/91 07/14/18 01:45 65 18 161/98 95 07/14/18 01:40 97.6 F 67 20 159/102 100 07/14/18 01:30 71 18 166/94 07/14/18 01:25 73 16 160/89 07/14/18 01:20 64 16 155/99 98 07/14/18 01:15 97.0 F L 65 18 161/98 98 07/13/18 21:53 87 181/89 07/13/18 21:43 74 150/85 07/13/18 21:32 70 152/93 07/13/18 21:22 97.9 F 75 20 167/99 07/13/18 21:12 71 152/88 07/13/18 21:02 77 157/101 07/13/18 20:52 74 151/93 07/13/18 20:43 77 132/69 07/13/18 20:32 76 133/76 07/13/18 20:24 78 137/77 07/13/18 20:13 76 123/69 07/13/18 20:02 88 140/83 07/13/18 19:52 87 145/75 07/13/18 19:42 85 159/80 07/13/18 19:32 83 155/82 07/13/18 19:23 82 138/82 07/13/18 19:12 82 140/80 07/13/18 19:02 82 138/78 07/13/18 18:53 82 151/83 07/13/18 18:43 85 155/89 07/13/18 18:33 82 137/80 07/13/18 18:22 85 138/80 07/13/18 18:12 87 141/79 07/13/18 18:03 86 131/72 07/13/18 17:52 86 132/73 07/13/18 17:42 83 136/75 07/13/18 17:33 82 143/82 07/13/18 17:27 82 154/81 07/13/18 17:13 67 189/111 07/13/18 17:05 67 211/105 07/13/18 16:46 81 139/69 07/13/18 16:44 72 220/113 07/13/18 16:12 71 165/82 07/13/18 16:10 66 203/108 07/13/18 15:33 68 172/83 07/13/18 15:30 69 91 07/13/18 15:29 66 97 07/13/18 15:24 71 96 07/13/18 15:23 71 186/96 07/13/18 15:21 68 202/99 07/13/18 15:18 97.9 F 76 18 186/96 98 Intake and Output 07/13/18 07/14/18 07/14/18 23:59 07:59 15:59 Intake Total 0 Output Total 400 300 Balance -400 -300 Intake: IV 0 Output: Urine 400 300 Indwelling Catheter 400 100 Other: Total, Output Amount 400 100 - Exam Breasts: Present: normal Cardiovascular: Present: Regular rate, Normal S1, Normal S2, No murmurs Lungs: Present: Clear to auscultation, Normal air movement Abdomen: Present: normal appearance, soft, tenderness (as expected post-op), normal bowel sounds. Absent: distention Vulva: both: normal Uterus: Present: firm, fundal height below umbilicus (-1) Extremities: Present: normal Deep Tendon Reflex Grade: Normal +2 Incision: Present: normal, dry, intact, dressed (Pressure dressing) - Labs Labs: Abnormal lab results 07/13/18 07/13/18 07/14/18 Range/Units 17:00 17:00 00:59 MCHC 35 H (30-34) % Sodium 136 L (137-145) mmol/L Carbon Dioxide 20 L (22-30) mmol/L BUN 19 H (7-17) mg/dL Magnesium 3.90 H (1.7-2.3) mg/dL Albumin 3.5 L (3.9-5) g/dL 07/14/18 Range/Units 06:52 MCHC (30-34) % Sodium (137-145) mmol/L Carbon Dioxide (22-30) mmol/L BUN (7-17) mg/dL Magnesium 5.80 H (1.7-2.3) mg/dL Albumin (3.9-5) g/dL
[2018-07-14] MEDS: PRENATAL VITAMIN PO SCH (10:00)
[2018-07-14] MEDS ORDERED: NORMODYNE PO SCH (10:00)
[2018-07-14] MEDS: PERCOCET 5/325 PO PRN ×2 (10:26→18:07)
[2018-07-14] MEDS: FEOSOL PO SCH (10:28)
[2018-07-14] MEDS ORDERED: MAGNESIUM SULFATE 40GM/1000ML 40 GM/1,000 ML BAG IV SCH (10:30)
[2018-07-14] MEDS ORDERED: LACTATED RINGERS 1,000 ML ONE (11:06)
[2018-07-14] MEDS: LACTATED RINGERS 1,000 ML IV SCH ×2 (11:15→20:40)
[2018-07-14 12:21] LABS: Hematocrit 32.7 % (30.3-42.9); Hemoglobin 11.1 gm/dl (10.1-14.3)
--- NOTE | 2018-07-14 17:56 | Progress Note ---
Assessment and Plan - Patient Problems (1) 34 weeks gestation of Current Visit: Yes Status: Acute (2) Pre-eclampsia superimposed on chronic hypertension Current Visit: Yes Status: Acute Plan to address problem: Continue magnesium sulfate to complete 24 hrs. Last level was 6.2 this AM. Continue labetolol for BP control. Monitor BP. (3) delivery delivered Current Visit: Yes Status: Acute Plan to address problem: Continue routine post op care. Encourage ambulation after magnesium is discontinued tonight. (4) Cervical incompetence Current Visit: No Status: Acute (5) Anemia Current Visit: No Status: Acute Qualifiers: Anemia type: iron deficiency (6) Advanced maternal age (AMA), 40 years or greater Current Visit: No Status: Acute Subjective - Subjective Date of service: 07/14/18 Principal diagnosis: POD#1 s/p Primary c/s, Preeclampsia Interval history: I saw patient at 12 PM today. She is POD#1. She is S/P C/section at 34+ weeks for pre-eclampsia. She has been on magnesium sulfate. Urine output and DTRs are adequate. BP has been in the 14-150's/80's. She is on labetolol 200 mg BID. She denies any complaint right now. She is tolerating regular diet well. Objective - Vital Signs Latest vital signs: Vital Signs Temp Pulse Resp BP BP Pulse Ox 07/14/18 16:15 97.9 F 72 18 146/90 98 07/14/18 14:50 98.1 F 71 18 149/93 07/14/18 12:40 97.9 F 70 18 140/85 99 07/14/18 10:34 97.6 F 73 18 140/84 07/14/18 08:58 97.6 F 73 18 147/87 100 07/14/18 07:03 76 157/87 07/14/18 06:45 76 157/87 07/14/18 04:00 98.6 F 82 18 161/99 07/14/18 02:00 98.7 F 77 16 157/91 07/14/18 01:45 65 18 161/98 95 07/14/18 01:40 97.6 F 67 20 159/102 100 07/14/18 01:30 71 18 166/94 07/14/18 01:25 73 16 160/89 07/14/18 01:20 64 16 155/99 98 07/14/18 01:15 97.0 F L 65 18 161/98 98 07/13/18 21:53 87 181/89 07/13/18 21:43 74 150/85 07/13/18 21:32 70 152/93 07/13/18 21:22 97.9 F 75 20 167/99 07/13/18 21:12 71 152/88 07/13/18 21:02 77 157/101 07/13/18 20:52 74 151/93 07/13/18 20:43 77 132/69 07/13/18 20:32 76 133/76 07/13/18 20:24 78 137/77 07/13/18 20:13 76 123/69 07/13/18 20:02 88 140/83 07/13/18 19:52 87 145/75 07/13/18 19:42 85 159/80 07/13/18 19:32 83 155/82 07/13/18 19:23 82 138/82 07/13/18 19:12 82 140/80 07/13/18 19:02 82 138/78 07/13/18 18:53 82 151/83 07/13/18 18:43 85 155/89 07/13/18 18:33 82 137/80 07/13/18 18:22 85 138/80 07/13/18 18:12 87 141/79 07/13/18 18:03 86 131/72 07/13/18 17:52 86 132/73 Intake and Output 07/14/18 07/14/18 07/14/18 07:59 15:59 23:59 Intake Total 720 Output Total 300 800 Balance -300 -80 Intake: Oral 480 Intake, Free Water 240 Output: Urine 300 800 Indwelling Catheter 100 800 Other: Total, Intake Amount 240 Total, Output Amount 100 800 Voiding Method Indwelling Catheter - Exam Cardiovascular: Present: Normal S1, Normal S2 Lungs: Present: Clear to auscultation Vulva: both: normal Deep Tendon Reflex Grade: Normal +2 - Labs Labs: Abnormal lab results 07/13/18 07/13/18 07/14/18 Range/Units 17:00 17:00 00:59 MCHC 35 H (30-34) % Sodium 136 L (137-145) mmol/L Carbon Dioxide 20 L (22-30) mmol/L BUN 19 H (7-17) mg/dL Magnesium 3.90 H (1.7-2.3) mg/dL Albumin 3.5 L (3.9-5) g/dL 07/14/18 07/14/18 Range/Units 06:52 11:52 MCHC (30-34) % Sodium (137-145) mmol/L Carbon Dioxide (22-30) mmol/L BUN (7-17) mg/dL Magnesium 5.80 H 6.20 H (1.7-2.3) mg/dL Albumin (3.9-5) g/dL
[2018-07-14] MEDS: MOTRIN PO PRN (20:40)
[2018-07-15] MEDS: PERCOCET 5/325 PO PRN ×2 (00:17→06:20)
[2018-07-15] MEDS ORDERED: BOOSTRIX IM ONE (06:00)
[2018-07-15] MEDS ORDERED: M-M-R II VACCINE SUB-Q ONE (06:00)
[2018-07-15] MEDS: PRENATAL VITAMIN PO SCH (09:50)
[2018-07-15] MEDS: MOTRIN PO PRN (09:50)
[2018-07-15] MEDS: FEOSOL PO SCH (09:51)
--- NOTE | 2018-07-15 12:17 | Progress Note ---
Assessment and Plan - Patient Problems (1) 34 weeks gestation of Current Visit: Yes Status: Acute (2) Pre-eclampsia superimposed on chronic hypertension Current Visit: Yes Status: Acute Plan to address problem: Patient was told that she should stay until tomorrow so that her BP can be monitored further. She said that she still wants to go home today and that she has no symptoms of pre-eclampsia. She was told to continue taking her labetolol, monitor her BP at home, to call the hospital or the office if her BP is anywhere above 140's/80's. She was told to go to the office on thursday (in 4 days) for BP check. Toxemia precautions were given including the signs to watch for. Her baby is in the NICU. (3) delivery delivered Current Visit: Yes Status: Acute Plan to address problem: Post op precautions were given. (4) Cervical incompetence Current Visit: No Status: Acute (5) Anemia Current Visit: No Status: Acute Qualifiers: Anemia type: iron deficiency (6) Advanced maternal age (AMA), 40 years or greater Current Visit: No Status: Acute Subjective - Subjective Date of service: 07/15/18 Principal diagnosis: POD#2 s/p Primary c/s, Preeclampsia Interval history: Patient is a 47 year old who is S/P primary C/section at 34+ weeks for pre- eclampsia. She was treated with magnesium sulfate which was discontinued yesterday. She is on labetolol 200 mg BID. Her BP has been in the 140's/80's after the delivery. She denies any headache, visual changes or RUQ pain. She has not been happy with some of the nursing staff in the mother-baby unit. She wants to be discharged today. Objective - Vital Signs Latest vital signs: Vital Signs Temp Pulse Resp BP BP Pulse Ox 07/15/18 11:50 98.6 F 80 140/85 07/15/18 05:50 98.4 F 73 20 146/83 07/15/18 00:20 98.2 F 89 20 163/94 07/14/18 22:50 79 20 163/96 07/14/18 22:21 79 163/96 07/14/18 20:30 98.2 F 78 20 159/96 07/14/18 18:24 97.8 F 77 18 159/96 07/14/18 16:15 97.9 F 72 18 146/90 98 07/14/18 14:50 98.1 F 71 18 149/93 07/14/18 12:40 97.9 F 70 18 140/85 99 Intake and Output 07/14/18 07/15/18 07/15/18 23:59 07:59 15:59 Intake Total 1480 480 120 Output Total 3000 800 Balance -1520 -320 120 Intake: IV 1000 Lactated Ringers 1,000 ml 1000 @ 125 mls/hr IV DIRECT [facility]INCENZO Rx#:[id number] Oral 240 480 120 Intake, Free Water 240 Output: Urine 3000 800 Indwelling Catheter 3000 Void 800 Other: Total, Intake Amount 240 240 120 Total, Output Amount 1400 200 - Exam Cardiovascular: Present: Normal S1, Normal S2 Lungs: Present: Clear to auscultation Deep Tendon Reflex Grade: Normal +2 - Labs Labs: Abnormal lab results 07/14/18 07/14/18 07/15/18 Range/Units 11:52 18:08 11:37 POC Glucose 109 H (70-105) Magnesium 6.20 H 5.60 H (1.7-2.3) mg/dL
--- NOTE | 2018-07-15 12:25 | Discharge Summary ---
Providers - Providers Date of Admission: 07/13/18 16:38 Date of discharge: 07/15/18 Attending physician: NEVILLE CASAS Primary care physician: JOSELYN HILL MD Hospitalization Reason for admission: section, other (Pre-eclampsia) Procedure: section Discharge diagnosis: other (S/P primary C/section at 34+ weeks due to severe pre -eclampsia) [place] baby: male Condition at discharge: Stable Disposition: [id number] TO HOME OR SELFCARE - Discharge Diagnoses (1) 34 weeks gestation of Status: Acute (2) Pre-eclampsia superimposed on chronic hypertension Status: Acute (3) delivery delivered Status: Acute (4) Cervical incompetence Status: Acute (5) Anemia Status: Acute Qualifiers: Anemia type: iron deficiency (6) Advanced maternal age (AMA), 40 years or greater Status: Acute Plan - Discharge Medications Prescriptions: Ibuprofen [Motrin 600 MG tab] 600 mg PO Q8H PRN #30 tablet PRN Reason: Pain Multivitamin with Iron [Multivitamins with Iron] 1 each PO DAILY #30 tablet oxyCODONE /ACETAMINOPHEN [Percocet 5/325] 1 tab PO Q6HR PRN #30 tablet PRN Reason: Pain - Provider Discharge Summary Activity: no sex for 6 weeks, no heavy lifting 4 weeks, no strenuous exercise Diet: routine Instructions: routine Additional instructions: [] Smoking cessation referral if applicable(refer to patient education folder for contact #) [] Refer to [facility] Booklet Call your doctor immediately for: * Fever > 100.5 * Heavy vaginal bleeding ( >1 pad per hour) * Severe persistent headache * Shortness of breath * Reddened, hot, painful area to leg or breast * Drainage or odor from incision. * Keep incision clean and dry at all times and follow doctor's instructions regarding bathing/showering - Follow up plan Follow up: JOSELYN HILL MD [Primary Care Provider] - 7 Days
[2018-07-15 16:43] VITALS: BP 154/83
== END 2018-07-15 18:30 | disposition home or self-care (01) | DRG 786 ==
LOC: TRG 14:44 → LD 16:38 → TRG 16:38 → LD 16:40 → OB 07-14 01:34
PROVIDERS: ADMIT Obstetrics & Gynecology Gynecology; ATTEND Obstetrics & Gynecology Gynecology
PROC: 10D00Z1 Extraction of Products of Conception, Low, Open Approach (ICD-10-PCS; principal; 2018-07-14)
PROC: 3E0234Z Introduction of Serum, Toxoid and Vaccine into Muscle, Percutaneous Approach (ICD-10-PCS; 2018-07-15)
DX: O11.4 Pre-existing hypertension with pre-eclampsia, complicating childbirth (principal); O34.33 Maternal care for cervical incompetence, third trimester; O99.02 Anemia complicating childbirth; D50.9 Iron deficiency anemia, unspecified; O36.5930 Maternal care for other known or suspected poor fetal growth, third trimester, not applicable or unspecified; Z3A.34 34 weeks gestation of pregnancy; Z37.0 Single live birth; Z23 Encounter for immunization
CPT/HCPCS: 36415; 76819; 80048; 80074; 82962; 83735; 85014; 85018; 85027; 86850; 86900; 86901; 88307; 99211; C9250; G0463; J0290; J0360; J0690; J1170; J1885; J2370; J2405; J2590; J2765; J3010; J3475; J7120

== ENCOUNTER 2022-06-17 02:40 | Emergency (ER) | payer MEDICAID, OTHER ==
[2022-06-17 03:30] LABS: Basophils % (Auto) 0.4 % (0.0-1.8); Hemoglobin 12.7 gm/dl (10.1-14.3); Lymphocytes # (Auto) 0.8 K/mm3 (1.2-5.4); Mean Corpuscular HGB Conc 33 % (30-34); Mean Corpuscular Volume 90 fl (79-97); Monocytes # (Auto) 0.6 K/mm3 (0.0-0.8); Monocytes % (Auto) 5.2 % (0.0-7.3); Platelet Count 236 K/mm3 (140-440); Red Blood Count 4.35 M/mm3 (3.65-5.03); Red Cell Distribution Width 13.8 % (13.2-15.2)
[2022-06-17 03:44] LABS: Alanine Aminotransferase 14 units/L (7-56); Albumin 4.5 g/dL (3.9-5); BUN/Creatinine Ratio 16; Blood Urea Nitrogen 14 mg/dL (7-17); Hemolysis Index 2
--- NOTE | 2022-06-17 03:50 | XRay Report ---
CHEST 2 VIEWS INDICATION / CLINICAL INFORMATION: SOB. COMPARISON: None available. FINDINGS: SUPPORT DEVICES: None. HEART / MEDIASTINUM: Mild enlargement of the cardiopericardial silhouette. LUNGS / PLEURA: Low lung volumes with central bronchovascular prominence, bibasilar atelectasis and h azy perihilar infiltrates concerning for either mild edema or pneumonia. No pneumothorax. ADDITIONAL FINDINGS: No significant pleural effusion identified. IMPRESSION: 1. Low lung volumes with central bronchovascular prominence, bibasilar atelectasis and hazy perihilar infiltrates concerning for either mild edema or pneumonia. Signer Name: Idris Street MD Signed: 06/17/2022 3:46 AM Workstation Name: [employer]
--- NOTE | 2022-06-17 05:40 | Cat Scan Report ---
CTA CHEST WITH CONTRAST INDICATION / CLINICAL INFORMATION: POST OP SOB. TECHNIQUE: Axial CT images were obtained through the chest after injection of 100 mL Omnipaque 350 IV contrast. 3 plane MIP and/or 3D reconstructions were produced. All CT scans at this location are per formed using CT dose reduction for ALARA by means of automated exposure control. COMPARISON: None available. FINDINGS: PULMONARY EMBOLUS: None. HEART: No significant abnormality. THORACIC AORTA: No significant abnormality. CORONARY ARTERY CALCIFICATION: Absent -- None. PLEURA: No pleural effusion. No pneumothorax. LUNGS: Scattered subsegmental platelike atelectasis involving the bilateral lower lobes, right middle lobe, inferior lingula and posterior right upper lobe. No definite evidence for superimposed bacteri al pneumonia. LYMPH NODES: No pathologic thoracic lymphadenopathy. UPPER ABDOMEN: No acute findings. SKELETAL STRUCTURES: No acute or destructive osseous process. Bilateral retropectoral breast implants appear intact. IMPRESSION: 1. No evidence for pulmonary thromboembolus. 2. Scattered bilateral subsegmental platelike atelectasis without other acute chest process. Signer Name: Idris Street MD Signed: 06/17/2022 5:36 AM Workstation Name: [employer]
[2022-06-17] MEDS ORDERED: IPRATROPIUM/ALBUTEROL SULFATE 3 ML AMPUL.NEB IH ONE (06:52)
--- NOTE | 2022-06-17 07:45 | Emergency Department Report ---
ED Shortness of Breath HPI - General Chief Complaint: Dyspnea/Respdistress Stated Complaint: MI Time Seen by Provider: 06/17/22 06:17 Source: patient Mode of arrival: Wheelchair Limitations: No Limitations - History of Present Illness Initial Comments: 51-year-old female presents to the hospital with complaints of shortness of breath since last night. Early in the day yesterday she had a muscle repair of her previous abdominoplasty. She states that this surgery required intubation and general anesthesia. She got home about 6 PM. By 10 PM she woke up with complaints of shortness of breath. She reports wheezing after ED arrival. Patient states she has been prescribed Keflex, and injection to prevent blood clots which is likely Lovenox, and pain medication. She was also provided an incentive spirometer and presents with a TUTU drain, abdominal binder, and Knight catheter. She is requesting Knight catheter removal prior to discharge since she has been told by her doctor that it should be removed this morning. - Related Data Home Medications Medication Instructions Recorded Confirmed Last Taken ALPRAZolam [Xanax TAB] 0.5 mg PO TID PRN 06/17/22 06/17/22 Unknown Celecoxib [celeBREX] 100 mg PO BID 06/17/22 06/17/22 Unknown Docusate Sodium [Colace] 100 mg PO BID PRN 06/17/22 06/17/22 Unknown Enoxaparin [Lovenox] 40 mg SQ QDAY 06/17/22 06/17/22 Unknown Fluticasone [Flonase] 2 spray NS QDAY 06/17/22 06/17/22 Unknown Ondansetron [Zofran Odt] 4 mg PO Q8HR 06/17/22 06/17/22 Unknown Oxycodone HCl/Acetaminophen 1 each PO Q8H PRN 06/17/22 06/17/22 06/17/22 00:30 [Oxycodone-Acetaminophen 10-325] cephALEXin [Keflex] 500 mg PO Q8HR 06/17/22 06/17/22 Unknown Previous Rx's Medication Instructions Recorded Last Taken Type Albuterol Sulfate [Proair 2 puff IH Q4HR PRN #1 inh 06/17/22 Unknown Rx Respiclick] Benzonatate [Tessalon Perles] 100 mg PO Q8HR PRN #20 cap 06/17/22 Unknown Rx Allergies Allergy/AdvReac Type Severity Reaction Status Date / Time No Known Allergies Allergy Verified 06/17/22 07:28 ED Review of Systems ROS: Stated complaint: MI Other details as noted in HPI Comment: All other systems reviewed and negative ED Past Medical Hx - Past Medical History Previous Medical History?: Yes Hx Hypertension: Yes (only with ) Hx Congestive Heart Failure: No Hx Diabetes: No Hx Deep Vein Thrombosis: No Hx Renal Disease: No Hx Sickle Cell Disease: No Hx Seizures: No Hx Asthma: No Hx COPD: No Hx HIV: No - Surgical History Past Surgical History?: Yes Additional Surgical History: MUSCLE REPAIR 06/16/2022 - Social History Smoking Status: Unknown if ever smoked - Medications Home Medications: Home Medications Medication Instructions Recorded Confirmed Last Taken Type ALPRAZolam [Xanax TAB] 0.5 mg PO TID PRN 06/17/22 06/17/22 Unknown History Albuterol Sulfate [Proair 2 puff IH Q4HR PRN #1 inh 06/17/22 Unknown Rx Respiclick] Benzonatate [Tessalon Perles] 100 mg PO Q8HR PRN #20 cap 06/17/22 Unknown Rx Celecoxib [celeBREX] 100 mg PO BID 06/17/22 06/17/22 Unknown History Docusate Sodium [Colace] 100 mg PO BID PRN 06/17/22 06/17/22 Unknown History Enoxaparin [Lovenox] 40 mg SQ QDAY 06/17/22 06/17/22 Unknown History Fluticasone [Flonase] 2 spray NS QDAY 06/17/22 06/17/22 Unknown History Ondansetron [Zofran Odt] 4 mg PO Q8HR 06/17/22 06/17/22 Unknown History Oxycodone HCl/Acetaminophen 1 each PO Q8H PRN 06/17/22 06/17/22 06/17/22 00:30 History [Oxycodone-Acetaminophen 10-325] cephALEXin [Keflex] 500 mg PO Q8HR 06/17/22 06/17/22 Unknown History ED Physical Exam - General Limitations: No Limitations - Other Other exam information: General: No acute distress Head: Atraumatic Eyes: normal appearance ENT: Moist mucous membranes Neck: Normal appearance, no midline tenderness Chest: Clear to auscultation bilaterally, frequent dry cough CV: Regular rate and rhythm Abdomen: Abdominal binder in place, TUTU drain with minimal bloody drainage, Knight catheter in place with yellow urine Back: Normal inspection Extremity: Normal inspection, full range of motion, no calf tenderness or leg Neuro: Alert O x 3, no facial asymmetry, speech clear, no gross motor sensory deficit Psych: Appropriate behavior Skin: No rash ED Course Vital Signs 06/17/22 06/17/22 06/17/22 02:50 07:07 08:04 Temperature 98.2 F Pulse Rate 88 91 H Pulse Rate [ 90 Bilateral] Respiratory 18 15 Rate Respiratory 18 Rate [Bilateral ] Blood Pressure 157/98 Blood Pressure [Left] O2 Sat by Pulse 94 96 Oximetry 06/17/22 08:08 Temperature Pulse Rate 90 Pulse Rate [ Bilateral] Respiratory 14 Rate Respiratory Rate [Bilateral ] Blood Pressure Blood Pressure 149/95 [Left] O2 Sat by Pulse 97 Oximetry ED Medical Decision Making - Lab Data Result diagrams: 06/17/22 02:53 06/17/22 02:53 Lab Results 06/17/22 06/17/22 06/17/22 Range/Units 02:53 02:53 02:53 WBC 12.6 H (4.5-11.0) K/mm3 RBC 4.35 (3.65-5.03) M/mm3 Hgb 12.7 (10.1-14.3) gm/dl Hct 39.0 (30.3-42.9) % MCV 90 (79-97) fl MCH 29 (28-32) pg MCHC 33 (30-34) % RDW 13.8 (13.2-15.2) % Plt Count 236 (140-440) K/mm3 Lymph % (Auto) 6.0 L (13.4-35.0) % [place] % (Auto) 5.2 (0.0-7.3) % Eos % (Auto) 0.0 (0.0-4.3) % Baso % (Auto) 0.4 (0.0-1.8) % Lymph # (Auto) 0.8 L (1.2-5.4) K/mm3 [place] # (Auto) 0.6 (0.0-0.8) K/mm3 Eos # (Auto) 0.0 (0.0-0.4) K/mm3 Baso # (Auto) 0.0 (0.0-0.1) K/mm3 Seg Neutrophils % 88.4 H (40.0-70.0) % Seg Neutrophils # 11.1 H (1.8-7.7) K/mm3 D-Dimer 675.19 H (0-234) ng/mlDDU Sodium 135 L (137-145) mmol/L Potassium 4.4 (3.6-5.0) mmol/L Chloride 96.1 L (98-107) mmol/L Carbon Dioxide 22 (22-30) mmol/L Anion Gap 21 mmol/L BUN 14 (7-17) mg/dL Creatinine 0.9 (0.6-1.2) mg/dL Estimated GFR > 60 ml/min BUN/Creatinine Ratio 16 % Glucose 184 H (65-100) mg/dL Calcium 9.0 (8.4-10.2) mg/dL Total Bilirubin 0.80 (0.1-1.2) mg/dL AST 17 (5-40) units/L ALT 14 (7-56) units/L Alkaline Phosphatase 82 (35-129) units/L Total Protein 7.2 (6.3-8.2) g/dL Albumin 4.5 (3.9-5) g/dL Albumin/Globulin Ratio 1.7 % - Radiology Data Radiology results: report reviewed CHEST 2 VIEWS INDICATION / CLINICAL INFORMATION: SOB. COMPARISON: None available. FINDINGS: SUPPORT DEVICES: None. HEART / MEDIASTINUM: Mild enlargement of the cardiopericardial silhouette. LUNGS / PLEURA: Low lung volumes with central bronchovascular prominence, bibasilar atelectasis and hazy perihilar infiltrates concerning for either mild edema or pneumonia. No pneumothorax. ADDITIONAL FINDINGS: No significant pleural effusion identified. IMPRESSION: 1. Low lung volumes with central bronchovascular prominence, bibasilar atelectasis and hazy perihilar infiltrates concerning for either mild edema or pneumonia. CTA CHEST WITH CONTRAST INDICATION / CLINICAL INFORMATION: POST OP SOB. TECHNIQUE: Axial CT images were obtained through the chest after injection of 100 mL Omnipaque 350 IV contrast. 3 plane MIP and/or 3D reconstructions were produced. All CT scans at this location are performed using CT dose reduction for ALARA by means of automated exposure control. COMPARISON: None available. FINDINGS: PULMONARY EMBOLUS: None. HEART: No significant abnormality. THORACIC AORTA: No significant abnormality. CORONARY ARTERY CALCIFICATION: Absent -- None. PLEURA: No pleural effusion. No pneumothorax. LUNGS: Scattered subsegmental platelike atelectasis involving the bilateral lower lobes, right middle lobe, inferior lingula and posterior right upper lobe. No definite evidence for superimposed bacterial pneumonia. LYMPH NODES: No pathologic thoracic lymphadenopathy. UPPER ABDOMEN: No acute findings. SKELETAL STRUCTURES: No acute or destructive osseous process. Bilateral retropectoral breast implants appear intact. IMPRESSION: 1. No evidence for pulmonary thromboembolus. 2. Scattered bilateral subsegmental platelike atelectasis without other acute chest process. - Medical Decision Making 51-year-old female presents to the hospital shortness of breath and cough that started there in a day after her abdominoplasty muscle repair surgery. Patient was intubated during procedure. CT angiogram chest negative for pulmonary embolism but does show atelectasis. Patient is wearing an abdominal binder which is likely exacerbated her atelectasis changes. My initial contact patient had a frequent dry cough which improved after receiving bronchodilators. Patient states she was provided a incentive spirometer by her surgeon in addition to other medications listed in HPI. Patient be discharged to continue her current medications and postoperative instructions as prescribed by her surgeon. She will also be prescribed an albuterol inhaler and cough medicine. Knight catheter to be removed by nurse as requested by patient. Critical Care Time: No Critical care attestation.: If time is entered above; I have spent that time in minutes in the direct care of this critically ill patient, excluding procedure time. ED Disposition Clinical Impression: Atelectasis, Bronchospasm, Post-op pain Disposition: 01 HOME / SELF CARE / HOMELESS Is pt being admited?: No Does the pt Need Aspirin: No Condition: Stable Instructions: Bronchospasm, Adult, [id number], How to Use a Dry Powder Inhaler, [id number], How to Use an Incentive Spirometer, Atelectasis, Adult Additional Instructions: Take the medication as prescribed. Continue your medication as prescribed by your surgeon. Follow-up with your doctor or doctor/clinic provided. Return if symptoms worsen as indicated by your discharge instructions. Also use the incentive spirometer prescribed by your surgeon to help with your lung atelectasis Prescriptions: Albuterol Sulfate [Proair Respiclick] 2 puff IH Q4HR PRN #1 inh PRN Reason: Wheezing Benzonatate [Tessalon Perles] 100 mg PO Q8HR PRN #20 cap PRN Reason: Cough Referrals: your, surgeon [Other] - 3-5 Days PRIMARY CARE, [Primary Care Provider] - 3-5 Days CHRISTINE BRANDON MD [Staff Physician] - 3-5 Days (Primary care doctor) Time of Disposition: 09:43
[2022-06-17] MEDS ORDERED: BENZONATATE 100 MG CAP PO ONE (08:45)
[2022-06-17 10:19] VITALS: BP 142/94
== END 2022-06-17 11:00 | disposition home or self-care (01) ==
LOC: ED 02:40
DX: J98.11 Atelectasis (principal); J98.01 Acute bronchospasm; G89.18 Other acute postprocedural pain; I10 Essential (primary) hypertension; Z79.899 Other long term (current) drug therapy
CPT/HCPCS: 36415; 71046; 71275; 80053; 85025; 85379; 94640; 99284; Q9967; 94644